=== PATIENT | male | born 1995 | race Caucasian/White ===

== ENCOUNTER 2022-05-28 14:05 | Outpatient (CLI) | payer BC, SELFPAY ==
[2022-05-28 09:40] LABS: Chloride* 105 mmol/L (96-114)
[2022-05-28 09:41] LABS: Albumin* 4.9 g/dL (3.3-5.0); Potassium* 4.5 mmol/L (3.6-5.1); Sodium* 139 mmol/L (135-149)
[2022-05-28 09:43] LABS: Carbon Dioxide* 24 mmol/L (20-32); Cholesterol* 231 mg/dL (90-199); Creatinine* 0.9 mg/dL (0.5-1.5); Estimated Glomerular Filt Rate 120 ml/min
[2022-05-28 09:44] LABS: Alanine Aminotransferase* 24 U/L (4-50); Alkaline Phosphatase* 81 U/L (40-150); Aspartate Amino Transferase* 25 U/L (12-35); Bilirubin Total* 0.7 mg/dL (0.1-1.5); Blood Urea Nitrogen* 16 mg/dL (5-24); Calcium* 9.8 mg/dL (8.4-10.6); Glucose* 120 mg/dL (60-115); Total Protein* 8.3 g/dL (6.0-8.3); Triglycerides* 195 mg/dL (40-149)
[2022-05-28 09:45] LABS: HDL Cholesterol* 41 mg/dL (>=40); LDL Cholesterol Calculated 151 mg/dL (<100)
== END 2022-05-28 14:06 | disposition home or self-care (01) ==
PROVIDERS: PCP Family Medicine; Visit Provider Family Medicine
DX: E78.5 Hyperlipidemia, unspecified (principal)
CPT/HCPCS: 80053; 80061

== ENCOUNTER 2024-05-25 10:06 | Outpatient (CLI) | payer BC, SELFPAY | END 2024-05-25 10:07 | disposition home or self-care (01) | LOC: NFLDREF 05-26 11:47 | PROVIDERS: PCP Family Medicine; Visit Provider Family Medicine | DX: E11.9 Type 2 diabetes mellitus without complications (principal) | CPT/HCPCS: 80053; 80061; 82043; 82570 ==